=== PATIENT | female | born 2005 | race Caucasian/White ===

== ENCOUNTER 2024-10-05 15:09 | Emergency (ER) | payer OTHER, SELFPAY ==
[2024-10-05 15:32] VITALS: BP 174/98
--- NOTE | 2024-10-05 15:32 | ED.GENMED ---
ED Provider Triage
<Lilian Ruffin PA-C - Last Filed: 10/05/24 15:36>
-
Patient seen by provider in Triage?: Seen in Triage
Attestation: A medical screening examination has been initiated by a qualified medical provider. Based on the assessment performed at this time, it has been determined that an emergent medical condition may exist and the patient has been informed
that further medical evaluation and possible additional diagnostic testing may be needed.
HPI: 19yoF here with low back pain x 3 weeks. Also having shooting pains throughout abdomen. Gradually worsening. Feels like a blade being twisted. No fevers. No n/v/d. No urinary symptoms.
GENERAL: Alert , in no apparent distress
EYE: No visual abnormalities.
NECK: Trachea midline
ENT: No visible abnormalities.
LUNGS: No acute respiratory distress
NEUROLOGICAL: Alert and oriented
SKIN: Skin intact. No visible changes.
MUSCULOSKELETAL: Moving extremities normally
PSYCH: Normal and appropriate interaction.
This is a medical evaluation conducted in person to initiate diagnostic evaluation and provide initial therapeutics. Please see further documentation by the treating clinician.
Abdominal labs, HCG, UA, and CT abdomen with IV/PO contrast ordered.
History of Present Illness
<Lilian Ruffin PA-C - Last Filed: 10/05/24 15:36>
General
Chief Complaint: Back Pain
Time Seen by Provider: 10/05/24 17:43
<Tiffanie Nunez DO - Last Filed: 10/05/24 19:45>
History of Present Illness
History of Present Illness:
19-year-old female without significant past medical history presenting to the emergency department for lower back pain. Patient reports for the past 3 weeks she has been having low back pain, which started after she was at work. She is unsure if
she lifted something heavy and injured her back. Since then has had generalized lower back pain, has been using patches, heating packs, ibuprofen with mild relief. Symptoms were overall improving, however about 2 weeks ago pain started to radiate
to her abdomen. Over the weekend, pain worsened in the abdomen. Denies any history of abdominal surgeries. Denies any symptoms. Last menstrual period was at the beginning of the month. Denies chest pain or difficulty breathing. Denies
changes in stool. Denies additional acute medical complaints
Phy Exam
<Tiffanie Nunez DO - Last Filed: 10/05/24 19:45>
Physical Exam
Physical Exam:
General: Well-appearing, no clinical signs of dehydration, nontoxic and in no acute distress
HEENT: protecting airway
Neck: appears supple
CV: Normal heart rate, regular rhythm
Resp: No accessory muscle use, no increased work of breathing, lungs clear to auscultation bilaterally
Abd: Soft and non-distended, mild generalized tenderness to lower abdomen without rebound or guarding
Extremities: No deformities, no swelling. Generalized tenderness to the lower lumbar back musculature. No midline tenderness.
Neuro: alert, no focal neurologic deficit
: deferred
Rectal: deferred
Psych: Normal affect
Skin: Intact
Course
<Lilian Ruffin PA-C - Last Filed: 10/05/24 15:36>
Orders/Labs/Results
Orders:
Orders
10/05/24 15:33
CT Abd/pel W Iv And Oral Contr Urgent
Comment:
Reason For Exam: Generalized abd pain, back pain
Iohexol [Omnipaque] See Protocol PO NOW STA
Test Result ONCE
10/05/24 15:56
Complete Blood Count/With Diff Urgent
Comprehensive Metabolic Panel Urgent
HCG, Serum Qualitative Screen Urgent
Lipase Urgent
10/05/24 17:39
Urinalysis Reflex To Culture Urgent
Date Specimen was Collected: 10/05/24
Time Specimen was Collected: 15:36
10/05/24 18:05
Ketorolac [Toradol] 15 mg IV NOW STA
Abnormal Lab Results
10/05/24
15:56
Hct 36.6 L %
(37.0-47.0)
Absolute Monos (auto) 1.0 H 10^3/uL
(0.1-0.6)
Monocytes % 11.7 H %
(1.7-9.3)
10/05/24 15:56
10/05/24 15:56
Vital Signs
Initial and Last Documented VS:
Initial Vital Signs
Temp Pulse Resp BP Pulse Ox
97.9 F 130 16 174/98 100
10/05/24 15:32 10/05/24 15:32 10/05/24 15:32 10/05/24 15:32 10/05/24 15:32
Last Documented Vital Signs
Temp Pulse Resp BP Pulse Ox
97.9 F 130 18 121/71 98
10/05/24 15:32 10/05/24 15:32 10/05/24 18:44 10/05/24 19:00 10/05/24 19:15
<Tiffanie Nunez, DO - Last Filed: 10/05/24 19:45>
Orders/Labs/Results
Orders:
Orders
10/05/24 15:33
CT Abd/pel W Iv And Oral Contr Urgent
Comment:
Reason For Exam: Generalized abd pain, back pain
Iohexol [Omnipaque] See Protocol PO NOW STA
Test Result ONCE
10/05/24 15:56
Complete Blood Count/With Diff Urgent
Comprehensive Metabolic Panel Urgent
HCG, Serum Qualitative Screen Urgent
Lipase Urgent
10/05/24 17:39
Urinalysis Reflex To Culture Urgent
Date Specimen was Collected: 10/05/24
Time Specimen was Collected: 15:36
10/05/24 18:05
Ketorolac [Toradol] 15 mg IV NOW STA
Abnormal Lab Results
10/05/24
15:56
Hct 36.6 L %
(37.0-47.0)
Absolute Monos (auto) 1.0 H 10^3/uL
(0.1-0.6)
Monocytes % 11.7 H %
(1.7-9.3)
10/05/24 15:56
10/05/24 15:56
Vital Signs
Initial and Last Documented VS:
Initial Vital Signs
Temp Pulse Resp BP Pulse Ox
97.9 F 130 16 174/98 100
10/05/24 15:32 10/05/24 15:32 10/05/24 15:32 10/05/24 15:32 10/05/24 15:32
Last Documented Vital Signs
Temp Pulse Resp BP Pulse Ox
97.9 F 130 18 121/71 98
10/05/24 15:32 10/05/24 15:32 10/05/24 18:44 10/05/24 19:00 10/05/24 19:15
<Tiffanie Nunez DO - Last Filed: 10/05/24 19:45>
MDM/Problems Addressed
MDM/Problems Addressed:
19-year-old female presenting to the emergency department for low back pain and abdominal pain. Vital signs are normal.
On exam patient is well-appearing, nontoxic, no acute distress. Generalized tenderness to the lower abdomen and the lower back. Regarding back, appears consistent with musculoskeletal strain given reproducible nature of pain. No focal neurologic
deficits. No overlying skin changes, no midline tenderness with lower suspicion for acute spinal process. Regarding abdominal pain, overall benign exam, no rebound or guarding. Patient evaluated in triage with laboratory analysis obtained prior
to my assessment, unremarkable. Plan for CT abdominal imaging. Toradol administered for pain.
19:40 - CT without acute intra-abdominal process. There is mention of physiologic free fluid and a left ovarian cyst. However no focal tenderness to the left lower quadrant without concern for ovarian torsion. At this time without concern for
serious acute process or infection. Feel stable for discharge, however with close interval follow-up with primary care doctor and continued outpatient supportive therapy. Return precautions discussed and patient verbalized understanding
<Tiffanie Nunez DO - Last Filed: 10/05/24 19:45>
*Critical Care Note
Total Time (30-74mins, 75-104mins- exclusive of procedures): Not Applicable
ED Attending Note
<Lilian Ruffin PA-C - Last Filed: 10/05/24 15:36>
-
Portions of this chart may have been created with voice recognition software.� Occasional wrong word or��sound alike� substitutions may have occurred due to the inherent limitations of voice recognition software.
Discharge Plan
Departure
Referrals:
Kimberli Cox DO [Family Provider] -
Interventions
Interventions:
*Risk Screen - Suicide Last Done: 10/05/24 17:30
*General Assessment Last Done: 10/05/24 17:30
*Neglect/Abuse Screening Last Done: 10/05/24 17:30
ED- Fall Risk Assessment Last Done: 10/05/24 17:30
*ED COVID-19 Vaccine History Last Done: 10/05/24 17:30
FW-Nnftzc-Tkycoiipue Assessment Last Done: 10/05/24 17:30
ED-Musculoskeletal Assessment Last Done: 10/05/24 17:30
Discharge Date and Time
Print Language: NIUEAN
[2024-10-05] MEDS: OMNIPAQUE 50 ML PO (15:40)
[2024-10-05 16:02] LABS: % Basophils 0.5 % (0-2); % Eosinophils 1.5 % (0-6); % Immature Granulocytes 0.2 % (0-0.5); % Monocytes 11.7 % (1.7-9.3); % Neutrophils 58.1 % (42.2-75.2); Absolute Eosinophils 0.1 10^3/uL (0-0.7); Absolute Lymphocytes 2.5 10^3/uL (1.2-3.4); Absolute Neutrophils 5.1 10^3/uL (1.4-6.5); Hematocrit 36.6 % (37.0-47.0); Hemoglobin 12.9 g/dL (12.0-16.0); Mean Corp Hgb Conc. 35.2 g/dL (33.0-37.0); Mean Corpuscular Hgb 30.3 pg (27.0-31.0); Mean Corpuscular Volume 85.9 fL (81.0-99.0); Mean Platelet Volume 10.3 fL (7.4-10.4); Nucleated Red Blood Cells % 0 %; Platelet Count 305 10^3/uL (130-400); Red Blood Cell Count 4.26 10^6/uL (4.20-5.40); Red Cell Dist. Width 12.3 % (11.5-14.5); White Blood Cell Count 8.8 10^3/uL (4.8-10.8)
[2024-10-05 16:15] LABS: HCG, Serum Qualitative Screen Negative
[2024-10-05 16:20] LABS: ALT (SGPT) 21 U/L (0-35); AST (SGOT) 29 U/L (14-36); Alkaline Phosphatase 52 U/L (38-126); Blood Urea Nitrogen 16 mg/dl (7-17); Calcium 9.6 mg/dl (8.4-10.2); Carbon Dioxide 25 mmol/L (22-30); Chloride 102 mmol/L (98-107); Glucose 90 mg/dl (70-99); Lipase 124 U/L (23-300); Potassium 4.2 mmol/L (3.5-5.1); Sodium 135 mmol/L (135-145); Total Bilirubin 0.8 mg/dl (0.2-1.3); eGFR > 60.00
[2024-10-05 17:30] VITALS: BMI 21.0
[2024-10-05 17:45] LABS: Urine Albumin Negative (Neg - Trace); Urine Bilirubin Negative (Negative); Urine Character Clear (Clear); Urine Color Yellow; Urine Glucose Negative (Negative); Urine Ketone Negative (Negative); Urine Leukocyte Negative (Negative); Urine Nitrite Negative (Negative); Urine Occult Blood Negative (Negative); Urine Specific Gravity 1.015 (<1.030); Urine Urobilinogen Negative (Neg - 1+)
[2024-10-05] MEDS: TORADOL 15 MG IV (18:09)
[2024-10-05 18:43] VITALS: BP 95/62
[2024-10-05 18:44] VITALS: BP 95/62
[2024-10-05 19:00] VITALS: BP 121/71
[2024-10-05 20:00] VITALS: BP 123/62
== END 2024-10-05 20:22 | disposition home or self-care (01) ==
LOC: EMR 15:09
PROVIDERS: Physician Assistant; EMERGENCY PHYSICIAN Student in an Organized Health Care Education/Training Program; FAMILY PHYSICIAN Family Medicine
DX: M54.50 Low back pain, unspecified (principal); R10.9 Unspecified abdominal pain
CPT/HCPCS: 99284; 96374; 74177; 80053; 81003; 83690; 84703; 85025; Q9967